=== PATIENT | male | born 1995 | race Caucasian/White ===

== ENCOUNTER 2017-03-12 09:35 | Emergency (ER) | payer BC ==
[~2017-03-12] VITALS: Ht 180.3 cm; Wt 89.0 kg
[2017-03-12 09:44] VITALS: BP 147/87
[2017-03-12] MEDS ORDERED: ALBU0.63 NEB (09:48)
[2017-03-12 10:30] LABS: HEMATOCRIT 49.7 % (39.2-51.8); WHITE BLOOD COUNT 5.6 x10^3/uL (3.4-10)
[2017-03-12 10:42] LABS: BLOOD UREA NITROGEN 6 mg/dL (7-18)
== END 2017-03-12 11:10 | disposition home or self-care (01) ==
LOC: ED 10:19
DX: S09.90XA Unspecified injury of head, initial encounter (principal); S10.91XA Abrasion of unspecified part of neck, initial encounter; S80.211A Abrasion, right knee, initial encounter; S80.212A Abrasion, left knee, initial encounter; F10.220 Alcohol dependence with intoxication, uncomplicated; R41.3 Other amnesia; J45.909 Unspecified asthma, uncomplicated; X58.XXXA Exposure to other specified factors, initial encounter; Y93.89 Activity, other specified; Y92.89 Other specified places as the place of occurrence of the external cause; Y99.8 Other external cause status
CPT/HCPCS: 36415; 70450; 70486; 72125; 80048; 80307; 82040; 85025; 99285

== ENCOUNTER 2020-05-24 09:44 | Emergency (ER) | payer SELFPAY ==
[~2020-05-24] VITALS: Ht 182.9 cm; Wt 96.0 kg
[~2020-05-24 09:44] MED LIST: ALBU0.63 NEB
[2020-05-24] MEDS ORDERED: SODIUM CHLORIDE 0.9% 1,000ML IVBOLUS ONE (10:00)
--- NOTE | 2020-05-24 10:18 | NUR ---
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
[2020-05-24 10:31] LABS: BASOPHILS % (AUTO) 1 % (0-1); EOSINOPHILS % (AUTO) 2 % (1-7); LYMPHOCYTES % (AUTO) 47 % (22-44); MEAN CORPUSCULAR HGB CONC 34.3 g/dL (33.2-36.2); MEAN PLATELET VOLUME 7.6 fL (7.4-10.4); MONOCYTES % (AUTO) 6 % (2-9); NEUTROPHILS % (AUTO) 44 % (42-75); PLATELET COUNT 298 x10^3/uL (130-400); RED BLOOD COUNT 5.16 x10^6/uL (4.38-5.82); RED CELL DISTRIBUTION WIDTH 12.4 % (9.4-14.8)
[2020-05-24 10:34] LABS: ALANINE AMINOTRANSFERASE 38 U/L (12-78); ALBUMIN 4.8 g/dL (3.4-5.0); ANION GAP 10 mmol/L (5-15); CHLORIDE 112 mmol/L (98-107); CREATININE 1.16 mg/dL (0.7-1.3); MD NO
[2020-05-24 10:37] LABS: ALKALINE PHOSPHATASE 85 U/L (45-117); BILIRUBIN,TOTAL 0.5 mg/dL (0.2-1.0); TOTAL PROTEIN 9.5 g/dL (6.4-8.2)
[2020-05-24 11:14] VITALS: BP 154/74
[2020-05-24 11:20] LABS: AMPHETAMINE SCREEN, URINE Negative (Negative); BARBITURATE SCREEN, URINE Negative (Negative); BENZODIAZEPINE SCREEN, URINE Negative (Negative); CANNABINOID SCREEN, URINE Negative (Negative); COCAINE SCREEN, URINE Negative (Negative); METHADONE SCREEN, URINE Negative (Negative); OPIATE SCREEN, URINE Negative (Negative)
== END 2020-05-24 11:16 | disposition left against medical advice (07) ==
LOC: ED 10:30
DX: R41.0 Disorientation, unspecified (principal); R40.1 Stupor; F10.120 Alcohol abuse with intoxication, uncomplicated; R00.0 Tachycardia, unspecified; I51.7 Cardiomegaly; J45.909 Unspecified asthma, uncomplicated; Y90.9 Presence of alcohol in blood, level not specified
CPT/HCPCS: 36415; 80053; 80307; 85025; 93005; 99284